=== PATIENT | female | born 1990 | race Caucasian/White ===

== ENCOUNTER 2020-07-05 15:35 | Outpatient (REF) | payer MEDICARE, MEDICAID, SELFPAY ==
--- NOTE | 2020-07-05 15:45 | MM_ITS ---
EXAMINATION: MM DIAGNOSTIC DIGITAL BREAST TOMOSYNTHESIS, BILATERAL US DIAGNOSTIC ULTRASOUND BREAST, RIGHT CLINICAL INFORMATION: 29-year-old with palpable concern and tenderness posterior inferior right breast noted for approximately one week. No prior breast imaging. No known family history breast cancer. COMPARISON: None (current study represents initial baseline exam). TECHNIQUE: Digital breast tomosynthesis is performed in both the craniocaudal and mediolateral oblique views along with computer-aided detection (CAD). Synthesized 2D images are generated from the tomosynthesis. Ultrasound right breast is targeted to the area of clinical concern posterior inferior right breast. Patient is able to point to area of concern at time of imaging. Grayscale imaging and color Doppler are performed without and with harmonics. FINDINGS: The breasts are heterogeneously dense, which may obscure small masses (ACR BI-RADS breast composition Category c). Breast tissue composition borders on extremely dense. There is no mass or architectural abnormality. No abnormal calcifications. The axilla and skin contours are unremarkable. There is no mammographic finding in the area of palpable concern. No skin thickening or retraction. Ultrasound targeted to the area of clinical concern demonstrates no cystic or solid mass or architectural abnormality. There is no focal duct ectasia. No skin thickening or edema tracking in soft tissue planes. Clinical evaluation notes horizontal oriented linear bruise near inframammary fold in area of patient concern. Patient does not recall trauma. Results are discussed with the patient at time of visit. MM/MM tomosynthesis diagnostic BI IMPRESSION: 1. No mammographic evidence of malignancy. 2. Unremarkable targeted right breast ultrasound. 3. Horizontal oriented linear bruise in area of palpable concern near inframammary fold. ASSESSMENT: BI-RADS 2: Benign RECOMMENDATION: 1. Patient should be managed based on the clinical impression. 2. Otherwise, routine annual screening mammography, beginning age 40, or earlier as clinical risk factors warrant. This patient's information was entered into a reminder system with a target due date for their next mammogram.
--- NOTE | 2020-07-05 15:46 | US_ITS ---
Diagnostic right breast ultrasound described in single combined report along with the bilateral diagnostic digital breast tomosynthesis under accession number [id number].
== END 2020-07-05 15:36 | disposition home or self-care (01) ==
LOC: HO.MAMMO 15:35
PROVIDERS: Visit Provider Family Medicine
DX: N63.13 Unspecified lump in the right breast, lower outer quadrant (principal)
CPT/HCPCS: 76642; 77062; 77066

== ENCOUNTER 2022-07-29 16:56 | Outpatient (REF) | payer MEDICARE, MEDICAID, SELFPAY ==
--- NOTE | ~2022-07-29 | XR_ITS ---
EXAMINATION: XR CHEST CLINICAL INFORMATION: Shortness of breath COMPARISON: 08/16/2019 TECHNIQUE: PA and lateral views of the chest were obtained. FINDINGS: Status post mitral valve replacement. Cardiac silhouette is increased in size as compared to prior, borderline enlarged. There is increased prominence of the central pulmonary vasculature without appreciable congestion. Trace pleural effusions. No consolidation or pneumothorax. Osseous structures are normal. XR/XR chest 2V IMPRESSION: 1. Borderline enlarged cardiac silhouette status post mitral valve replaced, increased as compared to 2019. 2. Mild pulmonary venous congestion with trace pleural effusions. No appreciable pulmonary edema.
== END 2022-07-29 16:57 | disposition home or self-care (01) ==
LOC: HO.XRAY 16:56
PROVIDERS: Visit Provider Family Medicine
DX: R06.2 Wheezing (principal)
CPT/HCPCS: 71046

== ENCOUNTER 2023-06-10 14:01 | Outpatient (REF) | payer OTHER, SELFPAY ==
[2023-06-11 15:56] LABS: Influenza A PCR NEGATIVE (Negative); Influenza B PCR NEGATIVE (Negative); Resp Syncy Virus RNA Qual PCR NEGATIVE (Negative); SARS COV2 PCR INHOUSE NEGATIVE (Negative)
== END 2023-06-10 14:02 | disposition home or self-care (01) ==
LOC: HO.HHCLNP 14:01
PROVIDERS: Visit Provider Emergency Medicine
DX: Z11.52 Encounter for screening for COVID-19 (principal); Z20.822 Contact with and (suspected) exposure to COVID-19; R10.33 Periumbilical pain
CPT/HCPCS: 0241U

== ENCOUNTER 2024-03-24 13:51 | Outpatient (REF) | payer OTHER, SELFPAY ==
--- NOTE | ~2024-03-24 | XR_ITS ---
EXAMINATION: RIGHT WRIST, RIGHT HAND CLINICAL INFORMATION: Right hand and wrist pain COMPARISON: None available. TECHNIQUE: 3 views wrist, 4 views FINDINGS: Surgical clips are present on the ventral surface of the wrist laterally. A 5 mm cyst is present in the navicular. No significant bone, joint or soft tissue abnormality is seen. XR/XR hand RT min 3V IMPRESSION: No significant abnormality is seen. Electronically signed by: Augusto Melendez MD 03/24/2024 04:01 PM EDT
--- NOTE | ~2024-03-24 | XR_ITS ---
EXAMINATION: RIGHT WRIST, RIGHT HAND CLINICAL INFORMATION: Right hand and wrist pain COMPARISON: None available. TECHNIQUE: 3 views wrist, 4 views FINDINGS: Surgical clips are present on the ventral surface of the wrist laterally. A 5 mm cyst is present in the navicular. No significant bone, joint or soft tissue abnormality is seen. XR/XR wrist RT min 3V IMPRESSION: No significant abnormality is seen. Electronically signed by: Augusto Melendez MD 03/24/2024 04:01 PM EDT
[2024-03-24 16:10] LABS: MANUAL DIFF FLAG NO
[2024-03-24 16:17] LABS: Basophils Percent Auto 0.6 % (0-2); Eosinophils Absolute Auto 0.1 X10*3/uL (0.0-0.4); Eosinophils Percent Auto 1.3 % (0-4); Hematocrit 39.9 % (37.0-47.0); Hemoglobin 13.2 g/dl (12.0-16.0); Imm Gran Abs Auto 0.04 X10*3/uL (0.00-0.03); Imm Gran Pct Auto 0.6 % (0.0-0.4); Lymphocytes Absolute Auto 0.4 X10*3/uL (1.2-4.9); Lymphocytes Percent Auto 5.6 % (20-40); Mean Corpuscular HGB Conc 33.1 g/dl (31.0-35.0); Mean Corpuscular Volume 93.7 fL (80.0-98.0); Mean Platelet Volume 11.4 fL (9.4-12.3); Monocytes Absolute Auto 0.8 X10*3/uL (0.1-1.2); Monocytes Percent Auto 11.6 % (2-11); Neutrophils Absolute Auto 5.7 x10*3/uL (2.0-8.3); Neutrophils Percent Auto 80.3 % (45-73); Platelet Count 188 X10*3/uL (160-400); Red Blood Count 4.26 X10*6/uL (4.20-5.50); Red Cell Distribution Width 15.2 % (11.0-16.0); White Blood Count 7.1 X10*3/uL (4.8-10.8)
[2024-03-24 16:27] LABS: C Reactive Protein 0.69 mg/dL (< or = 0.50); Uric Acid 4.3 mg/dL (2.4-5.7)
== END 2024-03-24 13:52 | disposition home or self-care (01) ==
LOC: HO.HHCL 13:51
PROVIDERS: Visit Provider Internal Medicine
DX: M25.531 Pain in right wrist (principal)
CPT/HCPCS: 36415; 73110; 73130; 84550; 85025; 86140